=== PATIENT | male | born 1995 | race Caucasian/White ===

== ENCOUNTER 2023-08-04 04:30 | Emergency (ER) | payer OTHER ==
[2023-08-04] MEDS ORDERED: Famotidine 20 MG/2 ML SDV IVPUSH ONE (05:05)
[2023-08-04] MEDS ORDERED: Sodium Chloride 0.9% 10 ML Syringe FLUSH PRN (05:05)
[2023-08-04] MEDS ORDERED: diphenhydrAMINE 50 MG/ML SDV IVPUSH ONE (05:06)
[2023-08-04] MEDS ORDERED: methylPREDNISolone Sodium Succinate 40 MG/1 ML SDV IVPUSH ONE (05:06)
== END 2023-08-04 05:30 | disposition home or self-care (01) ==
LOC: LB.ED 04:30
DX: L25.9 Unspecified contact dermatitis, unspecified cause (principal)
CPT/HCPCS: 96374; 96375; 99282-25; J1200; J2920; J3490